=== PATIENT | female | born 1960 | race Caucasian/White ===

== ENCOUNTER 2017-02-01 08:29 | Emergency (ER) | payer OTHER ==
[2017-02-01 08:40] VITALS: BP 149/88; PULSE 72; TEMP 98; BMI 34.7
--- NOTE | 2017-02-01 08:45 | PDOC ---
History of Present Illness - General Chief Complaint: Rash Stated Complaint: RASH Time Seen by Provider: 02/01/17 08:43 History Source: Patient Exam Limitations: No Limitations - History of Present Illness Initial Comments: CHIEF COMPLAINT: 56 y/o female c/o itchy rash x 1 week and dog scratch to her left arm. HISTORY OF PRESENT ILLNESS: The patient states about 1 week ago she touched something at work (she works in a warehouse) and she developed a rash on her fingers. The rash is in between her fingers and has now spread to her elbows, neck and abdomen. She admits the itching is much worse at night. She also admits a friend's dog scratched her on her left forearm a few days ago and now the area is red and painful. SHe does not think the dog broke skin but she isn' t sure. She states the dog is UTD on all shots. Vital signs on arrival are within normal limits. REVIEW OF SYSTEMS: GENERAL/CONSTITUTIONAL: No fever/chills. No weakness. No weight change. HEAD, EYES, EARS, NOSE AND THROAT: No change in vision. No ear pain or discharge. No sore throat. CARDIOVASCULAR: No chest pain or shortness of breath. RESPIRATORY: No cough, wheezing, or hemoptysis. MUSCULOSKELETAL: No joint or muscle swelling or pain. No neck or back pain. SKIN: +itchy rash to hands, arms, neck and abdomen. +red, painful area to left forearm NEUROLOGIC: No headache, vertigo, loss of consciousness, or loss of sensation. PHYSICAL EXAM: GENERAL: The patient is awake, alert, and fully oriented, in no acute distress. HEAD: Normal with no signs of trauma. ENT: Pupils equal, round and reactive to light, extraocular movements intact, sclera anicteric, conjunctiva clear. Neck supple. LUNGS: Clear to auscultation bilaterally. Normal excursion. No respiratory distress or use of accessory muscles. EXTREMITIES: Normal range of motion, no edema. NEUROLOGICAL: Normal speech, normal gait. CN II-XII grossly intact. SKIN: Small erythematous and skin colored papules on fingers and in interdigital spaces, on right side of face and along lower abdomen. 6cm x 5cm erythematous ecchymosis to volar, proximal left forearm that is TTP and warm without streaking. No open wounds identified. Past History - Past Medical History Allergies/Adverse Reactions: Allergies Allergy/AdvReac Type Severity Reaction Status Date / Time shellfish derived Allergy Verified 02/01/17 08:40 IV DYE Allergy Uncoded 02/01/17 08:40 Home Medications: Ambulatory Orders Amox-Tr/K Cl [Augmentin - 875Mg Tablet] 1 tab PO BID #14 tablet 02/01/17 Permethrin 5% Topical Cream [Elimite -] 1 applic TP ONCE #1 tube 02/01/17 GI Disorders: Yes (COLITIS) Other medical history: SHINGLES,TINITUS - Surgical History Abdominal Surgery: Yes (TUBAL LIGATION) - Psycho/Social/Smoking Cessation Hx Anxiety: No Suicidal Ideation: No Smoking History: Current every day smoker Number of Cigarettes Smoked Daily: 4 Information on smoking cessation initiated: No Hx Alcohol Use: No Drug/Substance Use Hx: No *Physical Exam - Vital Signs Last Vital Signs Temp Pulse Resp BP Pulse Ox 98.0 F 72 18 149/88 98 02/01/17 08:36 02/01/17 08:36 02/01/17 08:36 02/01/17 08:36 02/01/17 08:36 Medical Decision Making - Medical Decision Making A/P: 56 y/o female with scabies rash and cellulitis/ecchmosis from dog bite. Will send rx for permethrin and augmentin. Instructed her to wash all sheets, towels and clothing in HOT water, and complete entire course of both medications. instructed her to return to the ER with any worsening or concerning symptoms. The patient verbalizes understanding of all instructions, has no further questions and is awaiting discharge. *DC/Admit/Observation/Transfer Diagnosis at time of Disposition: Scabies, Dog scratch - Discharge Dispostion Disposition: HOME Condition at time of disposition: Good - Prescriptions Prescriptions: Amox-Tr/K Cl [Augmentin - 875Mg Tablet] 1 tab PO BID #14 tablet Permethrin 5% Topical Cream [Elimite -] 1 applic TP ONCE #1 tube - Referrals Referrals: Johnathon Syed MD [Primary Care Provider] - - Patient Instructions Printed Discharge Instructions: DI for Scabies, DI for Dog Bite Additional Instructions: Discharge Instructions: -2 prescriptions have been called to your pharmacy; take as prescribed -Wash all of your clothes, bedding and towels in HOT water -Return to the ER with any worsening or concerning symptoms
== END 2017-02-01 09:34 | disposition home or self-care (01) ==
LOC: JERFT 08:29
DX: B86 Scabies (principal); S50.812A Abrasion of left forearm, initial encounter; W54.0XXA Bitten by dog, initial encounter; Y93.89 Activity, other specified; Y92.89 Other specified places as the place of occurrence of the external cause
CPT/HCPCS: 99281-25

== ENCOUNTER 2022-12-30 15:39 | Emergency (ER) | payer OTHER ==
[2022-12-30 15:52] VITALS: BP 162/72; PULSE 72; RESP 17; TEMP 98.5; BMI 29.8
[2022-12-30] MEDS ORDERED: predniSONE 20 MG TABLET (UD) PO ONE (16:17)
[2022-12-30] MEDS ORDERED: diphenhydrAMINE HCL 25 MG CAPSULE (FP) PO ONE ×2 (16:17→16:28)
[2022-12-30] MEDS ORDERED: FAMOTIDINE 20 MG TABLET PO ONE (16:25)
[2022-12-30] MEDS ORDERED: FAMOTIDINE 20 MG TABLET ONE (16:28)
[2022-12-30] MEDS ORDERED: predniSONE 20 MG TABLET (UD) ONE (16:28)
== END 2022-12-30 16:42 | disposition home or self-care (01) ==
LOC: JER 15:39 → JERFT 15:39
DX: R21 Rash and other nonspecific skin eruption (principal); T78.40XA Allergy, unspecified, initial encounter
CPT/HCPCS: 99283-25

== ENCOUNTER 2023-01-02 12:02 | Emergency (ER) | payer OTHER ==
[2023-01-02 12:13] VITALS: BP 157/65; PULSE 74; RESP 18; TEMP 98.6; BMI 29.0
== END 2023-01-02 13:30 | disposition home or self-care (01) ==
LOC: JERFT 12:02 → JER 12:02 → JERFT 13:30
DX: L21.9 Seborrheic dermatitis, unspecified (principal); R21 Rash and other nonspecific skin eruption; L29.9 Pruritus, unspecified
CPT/HCPCS: 99283-25